=== PATIENT | female | born 1935 | race Hispanic/Latino ===

== ENCOUNTER 2017-04-01 10:54 | Emergency (ER) | payer MEDICARE, MEDICAID ==
[~2017-04-01] VITALS: Ht 165.1 cm; Wt 70.0 kg
[~2017-04-01 10:54] MED LIST: ASPIRIN81 MG OR; DARVOCET-N 100100 MG OR; LIPITOR20 MG PO; LISINOP/HCTZ1 TA2 PO; OMEPRAZOLE20 MG OR; ONE DAIL1 PO; PLAVIX75 MG PO
[2017-04-01] MEDS ORDERED: METFORMIN1000 MG PO (11:58)
[2017-04-01] MEDS ORDERED: SERTRALINE25 MG PO (12:00)
[2017-04-01 12:45] VITALS: BP 140/60
[2017-04-01] MEDS ORDERED: NORCO1 TA1 PO (12:45)
== END 2017-04-01 12:45 | disposition home or self-care (01) ==
LOC: ED 10:54
DX: M25.552 Pain in left hip (principal)

== ENCOUNTER 2018-12-23 13:04 | Emergency (ER) | payer MEDICARE ==
[~2018-12-23] VITALS: Ht 165.1 cm; Wt 75.0 kg
[~2018-12-23 13:04] MED LIST changes: +METFORMIN1000 MG PO; +NORCO1 TA1 PO; +SERTRALINE25 MG PO
[2018-12-23 13:41] LABS: HEMATOCRIT 32.7 % (37.0-47.0); HEMOGLOBIN 10.7 g/dl (12.0-16.0); IMMATURE GRANULOCYTES 0.5 % (0.0-5.0); MEAN CELL VOLUME 92.9 fL CALC (80.0-100.0); MEAN CORPUSCULAR HGB 30.4 pG CALC (26.0-32.0); MEAN CORPUSCULAR HGB CONC 32.7 g/L CALC (32.0-36.0); NEUT# 3.9 thou/uL (2.00-7.15); RED BLOOD COUNT 3.52 mill/uL (4.20-5.60); RED CELL DISTRI WIDTH 13.6 % (11.5-15.5)
[2018-12-23 13:57] LABS: ALBUMIN 4.4 g/dL (3.2-5.0); ALKALINE PHOSPHATASE 84 u/l (38-126); AMYLASE 91 u/l (30-110); ANION GAP 14 (6-22 (CALC)); BILIRUBIN, TOTAL 0.7 mg/dL (0.0-1.4); BUN 19 mg/dL (8-23); BUN/CREATININE RATIO 25 (12-20 (CALC)); CARBON DIOXIDE 27 mmol/l (22-30); CHLORIDE 105 mmol/l (95-108); CPK 95 u/l (30-165); CREATININE 0.8 mg/dL (0.5-1.0); ETHYL ALCOHOL 0 mg/dl (0-30); GFR > 60 ML/MIN (>=60 (CALC)); GFR FOR AFR.AMER. > 60 ML/MIN (>=60 (CALC)); LIPASE 75 u/l (23-300); MAGNESIUM 1.8 mg/dL (1.6-2.3); POTASSIUM 5.2 mmol/l (3.5-5.1); SGOT/AST 26 u/l (9-36); SODIUM 141 mmol/l (137-146); TOTAL PROTEIN 7.5 g/dL (6.3-8.2)
[2018-12-23 14:02] LABS: ACT PARTIAL THROMBO TIME 25.6 SECONDS (20.0-32.5); INTERNATIONAL NORMALIZED RATIO 0.9 RATIO (0.7-1.3); PROTHROMBIN TIME 9.8 SECONDS (9.0-12.5)
[2018-12-23 14:23] LABS: TSH, 3RD GENERATION 1.53 uIU/mL (0.47 - 4.68)
[2018-12-23] MEDS ORDERED: PERCOCET 5/321 COMBO PO (14:32)
[2018-12-23 14:56] LABS: URINE BILIRUBIN - DIPSTICK NEGATIVE (NEGATIVE); URINE BLOOD DIPSTICK NEGATIVE (NEGATIVE); URINE COLOR YELLOW; URINE GLUCOSE - DIPSTICK NEGATIVE (NEGATIVE); URINE KETONE NEGATIVE (NEGATIVE); URINE LEUK ESTERASE TRACE (NEGATIVE); URINE NITRITE - DIPSTICK NEGATIVE (Negative); URINE PH 5.5 (4.5-8.0); URINE PROTEIN - DIPSTICK NEGATIVE (NEG-TRACE); URINE SPECIFIC GRAVITY 1.015; URINE UROBILINOGEN - DIPSTICK 0.2 E.U./dL (0.2)
[2018-12-23] MEDS ORDERED: NAPROSYN250 MG PO (14:56)
[2018-12-23] MEDS ORDERED: TOPROL XL50 MG PO (14:57)
[2018-12-23] MEDS ORDERED: GABAPENTIN100 MG PO (14:57)
[2018-12-23] MEDS ORDERED: CARBAMAZEPIN200 MG PO (14:58)
[2018-12-23] MEDS ORDERED: LISINOPRIL20 MG PO (14:59)
[2018-12-23 15:02] LABS: BARBITURATES NEGATIVE (NEGATIVE); COCAINE NEGATIVE (NEGATIVE); METHADONE NEGATIVE (NEGATIVE); OXCYCODONE POSITIVE (NEGATIVE); TETRAHYDROCANNABIONOL NEGATIVE (NEGATIVE); TRICYLIC ANTIDEPRESSANTS NEGATIVE (NEGATIVE)
[2018-12-23 15:20] VITALS: BP 159/85
== END 2018-12-23 15:20 | disposition short-term general hospital (02) ==
LOC: ED 13:04
DX: G40.909 Epilepsy, unspecified, not intractable, without status epilepticus (principal); E11.9 Type 2 diabetes mellitus without complications; I69.398 Other sequelae of cerebral infarction; Z79.84 Long term (current) use of oral hypoglycemic drugs
CPT/HCPCS: J1953

== ENCOUNTER 2020-01-21 08:39 | Emergency (ER) | payer MEDICARE, MEDICAID ==
[~2020-01-21] VITALS: Ht 165.1 cm; Wt 75.0 kg
[~2020-01-21 08:39] MED LIST changes: +CARBAMAZEPIN200 MG PO; +GABAPENTIN100 MG PO; +LISINOPRIL20 MG PO; +METFORMIN HYD1000 MG PO; -METFORMIN1000 MG PO; +NAPROSYN250 MG PO; +PERCOCET 5/321 COMBO PO; +TOPROL XL50 MG PO
[2020-01-21 09:23] LABS: HEMATOCRIT 38.2 % (37.0-47.0); HEMOGLOBIN 12.1 g/dl (12.0-16.0); IMMATURE GRANULOCYTES 0.3 % (0.0-5.0); MEAN CELL VOLUME 93.9 fL CALC (80.0-100.0); MEAN CORPUSCULAR HGB 29.7 pG CALC (26.0-32.0); MEAN CORPUSCULAR HGB CONC 31.7 g/dL CAL (32.0-36.0); NEUT# 4.25 thou/uL (2.00-7.15); RED BLOOD COUNT 4.07 mill/uL (4.20-5.60)
[2020-01-21 09:37] LABS: ALBUMIN 4.3 g/dL (3.2-5.0); ALKALINE PHOSPHATASE 88 u/l (38-126); ANION GAP 12 (6-22 (CALC)); BILIRUBIN, TOTAL 0.4 mg/dL (0.0-1.4); BUN 20 mg/dL (8-23); BUN/CREATININE RATIO 23 (12-20 (CALC)); CARBON DIOXIDE 25 mmol/l (22-30); CHLORIDE 104 mmol/l (95-108); CREATININE 0.9 mg/dL (0.5-1.0); GFR 60 ML/MIN (>=60 (CALC)); GFR FOR AFR.AMER. > 60 ML/MIN (>=60 (CALC)); LIPASE 112 u/l (23-300); POTASSIUM 4.5 mmol/l (3.5-5.1); SGOT/AST 18 u/l (9-36); SODIUM 137 mmol/l (137-146); TOTAL PROTEIN 6.9 g/dL (6.3-8.2)
[2020-01-21 10:46] LABS: URINE BILIRUBIN - DIPSTICK NEGATIVE (NEGATIVE); URINE BLOOD DIPSTICK NEGATIVE (NEGATIVE); URINE COLOR YELLOW; URINE GLUCOSE - DIPSTICK NEGATIVE (NEGATIVE); URINE KETONE NEGATIVE (NEGATIVE); URINE LEUK ESTERASE TRACE (NEGATIVE); URINE NITRITE - DIPSTICK NEGATIVE (Negative); URINE PROTEIN - DIPSTICK NEGATIVE (NEG-TRACE); URINE SPECIFIC GRAVITY 1.025; URINE UROBILINOGEN - DIPSTICK 0.2 E.U./dL (0.2)
[2020-01-21 12:13] VITALS: BP 157/79
== END 2020-01-21 12:39 | disposition home or self-care (01) ==
LOC: ED 08:39
PROVIDERS: Family Medicine
DX: N83.292 Other ovarian cyst, left side (principal); E11.9 Type 2 diabetes mellitus without complications; I10 Essential (primary) hypertension; G40.909 Epilepsy, unspecified, not intractable, without status epilepticus; Z86.73 Personal history of transient ischemic attack (TIA), and cerebral infarction without residual deficits; Z95.0 Presence of cardiac pacemaker; Z79.84 Long term (current) use of oral hypoglycemic drugs

== ENCOUNTER 2020-01-21 13:40 | Observation (INO) | payer MEDICARE ==
[~2020-01-21] VITALS: Ht 165.1 cm; Wt 95.4 kg
--- NOTE | 2020-01-21 13:40 | NUR ---
PT TO ROOM VIA EMS
--- NOTE | 2020-01-21 13:50 | NUR ---
PT ARRIVED VIA EMS FOR 2 SEIZURES PRIOR TO ARRIVAL. PT WAS JUST DISCHARGED FROM ER AND STATED THAT SHE WENT TO GET FOOD THEN HEADED HOME. PT SAID THAT WHEN SHE ARRIVED AT HOME SHE HAD A SEIZURE. PT DENIES N/V/D AT THIS TIME. PT IS AO X3. AWAITING ORDERS FROM EDP.
[2020-01-21 14:21] LABS: HEMATOCRIT 37.7 % (37.0-47.0); HEMOGLOBIN 12.1 g/dl (12.0-16.0); IMMATURE GRANULOCYTES 0.3 % (0.0-5.0); MEAN CELL VOLUME 93.1 fL CALC (80.0-100.0); MEAN CORPUSCULAR HGB 29.9 pG CALC (26.0-32.0); MEAN CORPUSCULAR HGB CONC 32.1 g/dL CAL (32.0-36.0); NEUT# 4.05 thou/uL (2.00-7.15); RED BLOOD COUNT 4.05 mill/uL (4.20-5.60); RED CELL DISTRI WIDTH 12.9 % (11.5-15.5)
[2020-01-21 14:42] LABS: ALBUMIN 4.4 g/dL (3.2-5.0); ALKALINE PHOSPHATASE 91 u/l (38-126); ANION GAP 13 (6-22 (CALC)); BILIRUBIN, TOTAL 0.4 mg/dL (0.0-1.4); BUN 19 mg/dL (8-23); BUN/CREATININE RATIO 25 (12-20 (CALC)); CARBON DIOXIDE 25 mmol/l (22-30); CHLORIDE 103 mmol/l (95-108); CREATININE 0.8 mg/dL (0.5-1.0); GFR > 60 ML/MIN (>=60 (CALC)); GFR FOR AFR.AMER. > 60 ML/MIN (>=60 (CALC)); SGOT/AST 20 u/l (9-36); SODIUM 137 mmol/l (137-146); TOTAL PROTEIN 7.3 g/dL (6.3-8.2)
--- NOTE | 2020-01-21 14:50 | NUR ---
PT RESTING IN BED WITH KEPPRA INFUSING. IV SITE APPEARS HEALTHY AND INTACT. AWAITING KEPPRA COMPLETION FOR PT TO GO DOWN FOR CT SCAN. VSS ARE WNL. DAUGHTER AT BEDSIDE. WILL CONTINUE TO MONITOR.
--- NOTE | 2020-01-21 15:50 | NUR ---
PT STATING THAT SHE HUNGRY, GIVEN APPLE SAUCE.
--- NOTE | 2020-01-21 16:45 | NUR ---
RECIEVED REPORT FROM STORMY BANG. PT ARRIVED TO [facility] ROOM 271 VIA STRETCHER IN STABLE CONDITION ACCOMPAINED BY ER STAFF AND DAUGHTER. INTRODUCED SELF TO PT AND DISCUSSED POC. PT IS A/O TO SELF. PT APPEARS TO BE DROWSY DUE TO BEING MEDICATION IN ER. ASSESSMENT AND VITALS COMPLETED AT THIS TIME. BP 136/62, HR 57, O2 99% ON ROOM AIR. RESPIRATIONS ARE EVEN AND UNLABORED WITH NO SIGNS OF DISTRESS NOTED. LUNG SOUNDS ARE CLEAR . HEART RHYTHM IS NORMAL WITH TELE IN PLACE. BOWEL SOUNDS ARE ACTIVE IN ALL QUADRANTS, LAST REPORTED BM 01/20/2020. RADIAL AND PEDAL PULSES ARE STRONG WITH NORMAL CAPILLARY REFILL. #18H IN LAC FLUSHED, SITE APPEARS HEALTHY AND PATENT. DAUGHTER AT BEDSIDE AND DAUGHTER CONTACTED VIA PHONE CALL GOOD HISTORIAN. WRITTER INFORMED THAT PT PRESENTED TO ER FOR SEIZURE. SEIZURE PRECAUTIONS IN PLACE. DAUGHTER NOTIFIED WRITTER OF CODIENE ALLERGY, ALLERGY BAND AND FALL RISK BAND APPLIED WRITTER WAS INFORMED THAT PT HAD AN APPOINTMENT WITH A NEUROLOGIST SCHEDULED FOR TOMORROW DUE FAMILY MEMBERS NOTICING REPEATING OF STORIES AND MENTAL STATUS CHANGING. DAUGHTER ASKED TO SPEND THE NIGHT DUE TO PT BEING CONFUSED WHEN AWAKING. STRAW HAT WASHER OPERATOR NOTIFIED. REQUEST DENIED. BED ALARM ACTIVATED. ALL SAFTY PRECAUTIONS ARE IN PLACE WITH CALL LIGHT IN REACH AND DAUGHTER AT BEDSIDE. WILL CONTINUE TO MONITOR
--- NOTE | 2020-01-21 16:50 | NUR ---
PT AWAITING ON STRETCHER, AWAITING ADMISSION
--- NOTE | 2020-01-21 17:21 | NUR ---
REPORT CALLED TO [facility]- REPORT GIVEN TO EDUIN MCGEE
--- NOTE | 2020-01-21 17:36 | NUR ---
PT TRANSPORTED TO 271 VIA STRETCHER ACCOMPANIED BY DAUGHTER. CARE RELINQUISHED TO MICHELLE MCGEE.
[2020-01-21 19:02] VITALS: BP 111/65
--- NOTE | 2020-01-21 20:15 | NUR ---
PT SLEEPING, NO S/O DISTRESS NOTED. CALL LIGHT AT SIDE AND BED IN LOWEST POSITION, BED ALARM ON AND SEIZURE PRECAUTIONS PLACED.
--- NOTE | 2020-01-21 22:03 | NUR ---
PT MEDICATED ORDERS PROVIDE. NO S/O DISTRESS NOTED. CALL LIGHT W/IN REACH, BED ALARM ON.
[2020-01-21 23:40] VITALS: BP 118/59
--- NOTE | 2020-01-22 02:05 | NUR ---
PT SLEEPING, NO S/O DISTRESS NOTED.
[2020-01-22 03:44] VITALS: BP 101/55
--- NOTE | 2020-01-22 03:59 | NUR ---
ASSISTED PT TO BSC AND BACK TO BED. PT SET OFF BED ALARM, DID NOT CALL. NO S/O DISTRESS, BUT PT UNSTEADY ON FEET. PT REPORTS KNOWING SHE IS IN THE HOSPITAL, BUT APPEARS SOMEWHAT CONFUSED ABOUT CIRCUMSTANCES AT THIS TIME. LEFT WITH BED ALARM ON, BED IN LOWEST POSITION AND CALL LIGHT W/IN REACH.
[2020-01-22 06:05] LABS: HEMATOCRIT 38.2 % (37.0-47.0); IMMATURE GRANULOCYTES 0.4 % (0.0-5.0); MEAN CELL VOLUME 94.6 fL CALC (80.0-100.0); MEAN CORPUSCULAR HGB 29.7 pG CALC (26.0-32.0); MEAN CORPUSCULAR HGB CONC 31.4 g/dL CAL (32.0-36.0); NEUT# 3.38 thou/uL (2.00-7.15); RED BLOOD COUNT 4.04 mill/uL (4.20-5.60); RED CELL DISTRI WIDTH 12.8 % (11.5-15.5)
[2020-01-22 06:37] LABS: ALKALINE PHOSPHATASE 81 u/l (38-126); ANION GAP 11 (6-22 (CALC)); BILIRUBIN, TOTAL 0.5 mg/dL (0.0-1.4); BUN 18 mg/dL (8-23); BUN/CREATININE RATIO 25 (12-20 (CALC)); CALCULATED LDLCHOLESTEROL 106 mg/dL (62-129 (CALC)); CARBON DIOXIDE 27 mmol/l (22-30); CHLORIDE 105 mmol/l (95-108); CHOLESTEROL HDL RATIO 4.9 (<4.4 (CALC)); CREATININE 0.7 mg/dL (0.5-1.0); GFR > 60 ML/MIN (>=60 (CALC)); GFR FOR AFR.AMER. > 60 ML/MIN (>=60 (CALC)); HDL CHOLESTEROL 40 mg/dL (>=40); MAGNESIUM 1.9 mg/dL (1.6-2.3); POTASSIUM 4.2 mmol/l (3.5-5.1); SGOT/AST 21 u/l (9-36); SODIUM 139 mmol/l (137-146); TOTAL CHOLESTEROL 196 mg/dl (0-199); TOTAL PROTEIN 6.5 g/dL (6.3-8.2); TOTAL TRIGLYCERIDES 250 mg/dl (30-149); VLDL CHOLESTROL 50 mg/dl (0-48 (CALC))
--- NOTE | 2020-01-22 07:43 | NUR ---
PT note Patient is screened for PT intervevntion. She may benefit from consult and functional assessment if medical agrees
--- NOTE | 2020-01-22 08:10 | NUR ---
RECIEVED REPORT FROM STORMY GILMAN. PT RESTING IN SEMI FOLWERS POSITION UPON ENTERING ROOM WITH DAUGHTER AT BEDSIDE. INTRODUCED SELF TO PT AND DISCUSSED POC. PT IS A/O X2. ASSESSMENT AND VITALS COMPLETED AT THSI TIME. BP 130/57, HR 77, O2 95% ON ROOM AIR. RESPIRATIONS ARE EVEN AND UNLABORED WITH NO SIGNS OF DISTRESS NOTED. LUNG SOUNDS ARE CLEAR. HEART RHYTHM IS NORMAL WITH TELE IN PLACE. RADIAL AND PEDAL PULSES ARE STRONG WITH NORMAL CAPILLARY REFILL. #18G EMS FLUSHED,SITE APPEARS HEALTHY AND PATENT.HISTORY OF SIEZURES NOTED, SIEZURE PRECAUTIONS IN PLACE. PT DENEIS ANY PAIN OR DISCOMFORTS AT THIS TIME. ALL SAFETY PRECAUTIONS ARE IN PLACE WITH CALL LIGHT IN REACH AND BED ALARM ACTIVATED. WILL CONTINUE TO MONITOR
[2020-01-22 08:22] VITALS: BP 130/57
--- NOTE | 2020-01-22 08:42 | NUR ---
NITHIN SMITH AT BEDSIDE DISCUSSING POC WITH PT
[2020-01-22 11:00] VITALS: BP 115/59
--- NOTE | 2020-01-22 11:35 | NUR ---
WRITTER CALLED TO ROOM OF PT STATING IV WAS BLEEDING. BLOOD PRESENT. IV REMOVED WITH CATHATER INTACT DUE TO DISCHARGE ORDERS IN PLACE. PT TOLERATED WELL.
--- NOTE | 2020-01-22 11:46 | NUR ---
DAUGHTER ASSITED PT TO BATHROOM. DAUGHTER INFORMED WRITTER THAT PT WAS FEELING DIZZY. VITALS OBATINED 128/62, HR 65, O2 99% ON ROOM AIR. RESPIRATIONS ARE EVEN AND UNLABORED WITH NO DISTRESS NOTED. PT ASSISTED BACK INTO BED. BED ALARM ACTIVATED. ALL SAFTEY PRECAUTIONS ARE IN PLACE WITH CALL LIGHT IN REACH
[2020-01-22 11:48] VITALS: BP 128/62
--- NOTE | 2020-01-22 12:41 | NUR ---
PT SLEEPING IN LOW FOWLERS POSITION WITH DAUGHTER AT BEDSIDE. RESPIRATIONS ARE EVEN AND UNLABORED WITH NO SIGNS OF DISTRESS NOTED. PT DENIES ANY PAIN. DISCHARGE ORDERS IN. AWAITING FOR PHYSCIAL THERAPY CONSULTATION BEFORE DSICHARGE. ALL SAFETY PRECAUTIONS ARE IN PLACE WITH CALL LIGHT IN REACH. WILL CONTINUE TO MONITOR.
--- NOTE | 2020-01-22 13:27 | NUR ---
PT AT BEDSIDE WORKING WITH PT AT THIS TIME.
--- NOTE | 2020-01-22 14:12 | NUR ---
PT AD DAUGHTER EDUCTAED ON DISCHARGE INSTRUCTIONS. PT VERBAILZED UNDERSTANDING. TELE MONITORING REMOVED. ER NOTIFIED. DAUGHTER ASSISTING PT WITH GETTING DRESSED. [facility] PRE[facility]IONS ARE IN PLACE WITH CALL LUKECARLTONGarima IN REACH. WILL CONTINUE TO MONITOR
--- NOTE | 2020-01-22 14:31 | NUR ---
Discharge instructions given. Patient verbalizes understanding of same. Discharged in stable condition via Wheelchair to Home with family. All belongings sent with pt. PT DISCHARGE HOME WITH [facility]. PT DISCHARGED VIA WHEELCHAIR ACCOMPAINED BY WRITTER AND DAUGHTER WITH ALL BELONGINGS AND DISCHARGE PAPERWORK.
== END 2020-01-22 14:31 ==
LOC: ED 13:40 → ED-I 15:50 → ED 16:09 → MS2 16:10
PROVIDERS: Family Medicine; Nurse Practitioner; ADMIT Internal Medicine; ATTEND Internal Medicine
DX: G40.909 Epilepsy, unspecified, not intractable, without status epilepticus (principal); R07.9 Chest pain, unspecified; T42.1X6A Underdosing of iminostilbenes, initial encounter; S09.90XA Unspecified injury of head, initial encounter; I10 Essential (primary) hypertension; E11.9 Type 2 diabetes mellitus without complications; I48.91 Unspecified atrial fibrillation; W19.XXXA Unspecified fall, initial encounter; Z79.02 Long term (current) use of antithrombotics/antiplatelets; Z91.128 Patient's intentional underdosing of medication regimen for other reason; Z86.73 Personal history of transient ischemic attack (TIA), and cerebral infarction without residual deficits; Z95.0 Presence of cardiac pacemaker; Z20.828 Contact with and (suspected) exposure to other viral communicable diseases; R10.12 Left upper quadrant pain; N83.292 Other ovarian cyst, left side; Z79.84 Long term (current) use of oral hypoglycemic drugs
CPT/HCPCS: J1650; J1953; J2060

== ENCOUNTER 2020-05-20 18:35 | Emergency (ER) | payer MEDICARE ==
[~2020-05-20] VITALS: Ht 165.1 cm; Wt 65.0 kg
[2020-05-20] MEDS ORDERED: DONEPEZIL HCL10 M1 PO (19:12)
[2020-05-20 19:52] LABS: HEMATOCRIT 35.3 % (37.0-47.0); HEMOGLOBIN 11.1 g/dl (12.0-16.0); IMMATURE GRANULOCYTES 0.3 % (0.0-5.0); MEAN CELL VOLUME 93.6 fL CALC (80.0-100.0); MEAN CORPUSCULAR HGB 29.4 pG CALC (26.0-32.0); MEAN CORPUSCULAR HGB CONC 31.4 g/dL CAL (32.0-36.0); NEUT# 4.16 thou/uL (2.00-7.15); RED BLOOD COUNT 3.77 mill/uL (4.20-5.60); RED CELL DISTRI WIDTH 12.9 % (11.5-15.5)
[2020-05-20 20:13] LABS: ALBUMIN 4.3 g/dL (3.2-5.0); ALKALINE PHOSPHATASE 82 u/l (38-126); ANION GAP 12 (6-22 (CALC)); BUN 18 mg/dL (8-23); BUN/CREATININE RATIO 24 (12-20 (CALC)); CARBON DIOXIDE 26 mmol/l (22-30); CHLORIDE 102 mmol/l (95-108); CREATININE 0.7 mg/dL (0.5-1.0); GFR > 60 ML/MIN (>=60 (CALC)); GFR FOR AFR.AMER. > 60 ML/MIN (>=60 (CALC)); POTASSIUM 4.4 mmol/l (3.5-5.1); SGOT/AST 19 u/l (9-36); SODIUM 136 mmol/l (137-146); TOTAL PROTEIN 6.8 g/dL (6.3-8.2)
[2020-05-20 20:15] LABS: BILIRUBIN, TOTAL 0.2 mg/dL (0.0-1.4)
[2020-05-20 20:32] LABS: URINE BILIRUBIN - DIPSTICK NEGATIVE (NEGATIVE); URINE BLOOD DIPSTICK NEGATIVE (NEGATIVE); URINE COLOR YELLOW; URINE GLUCOSE - DIPSTICK NEGATIVE (NEGATIVE); URINE KETONE NEGATIVE (NEGATIVE); URINE LEUK ESTERASE NEGATIVE (NEGATIVE); URINE NITRITE - DIPSTICK NEGATIVE (Negative); URINE PH 5.5 (4.5-8.0); URINE PROTEIN - DIPSTICK NEGATIVE (NEG-TRACE); URINE UROBILINOGEN - DIPSTICK 0.2 E.U./dL (0.2)
[2020-05-20 21:00] VITALS: BP 156/88
== END 2020-05-20 21:00 | disposition home or self-care (01) ==
LOC: ED 18:35 → ED-I 19:55 → ED 21:00
PROVIDERS: Family Medicine
DX: R55 Syncope and collapse (principal); I10 Essential (primary) hypertension; E11.9 Type 2 diabetes mellitus without complications; I48.91 Unspecified atrial fibrillation; G40.909 Epilepsy, unspecified, not intractable, without status epilepticus; Z63.4 Disappearance and death of family member; Z95.0 Presence of cardiac pacemaker; Z79.84 Long term (current) use of oral hypoglycemic drugs; Z86.73 Personal history of transient ischemic attack (TIA), and cerebral infarction without residual deficits; Z20.822 Contact with and (suspected) exposure to COVID-19

== ENCOUNTER 2020-06-26 19:55 | Emergency (ER) | payer MEDICARE ==
[~2020-06-26] VITALS: Ht 165.1 cm; Wt 63.0 kg
[~2020-06-26 19:55] MED LIST changes: +DONEPEZIL HCL10 M1 PO
[2020-06-26 20:47] LABS: HEMATOCRIT 34.4 % (37.0-47.0); HEMOGLOBIN 10.8 g/dl (12.0-16.0); IMMATURE GRANULOCYTES 0.2 % (0.0-5.0); MEAN CELL VOLUME 93.5 fL CALC (80.0-100.0); MEAN CORPUSCULAR HGB 29.3 pG CALC (26.0-32.0); MEAN CORPUSCULAR HGB CONC 31.4 g/dL CAL (32.0-36.0); NEUT# 2.46 thou/uL (2.00-7.15); RED BLOOD COUNT 3.68 mill/uL (4.20-5.60); RED CELL DISTRI WIDTH 12.9 % (11.5-15.5)
[2020-06-26 21:04] LABS: ALKALINE PHOSPHATASE 79 u/l (38-126); ANION GAP 10 (6-22 (CALC)); BUN 24 mg/dL (8-23); BUN/CREATININE RATIO 33 (12-20 (CALC)); CARBON DIOXIDE 29 mmol/l (22-30); CHLORIDE 102 mmol/l (95-108); CREATININE 0.7 mg/dL (0.5-1.0); ETHYL ALCOHOL 0 mg/dl (0-30); GFR > 60 ML/MIN (>=60 (CALC)); GFR FOR AFR.AMER. > 60 ML/MIN (>=60 (CALC)); POTASSIUM 4.1 mmol/l (3.5-5.1); SGOT/AST 30 u/l (9-36); SODIUM 136 mmol/l (137-146); TOTAL PROTEIN 6.9 g/dL (6.3-8.2)
[2020-06-26 21:06] LABS: BILIRUBIN, TOTAL 0.5 mg/dL (0.0-1.4)
[2020-06-26 21:10] LABS: PROTHROMBIN TIME 9.7 SECONDS (9.0-12.5)
[2020-06-26 21:13] LABS: MYOGLOBIN 33 ng/mL (0 - 62)
[2020-06-26 23:42] LABS: URINE BILIRUBIN - DIPSTICK NEGATIVE (NEGATIVE); URINE COLOR YELLOW; URINE GLUCOSE - DIPSTICK NEGATIVE (NEGATIVE); URINE KETONE NEGATIVE (NEGATIVE); URINE PH 5.5 (4.5-8.0); URINE PROTEIN - DIPSTICK TRACE mg/dL (NEG-TRACE); URINE SPECIFIC GRAVITY 1.025; URINE UROBILINOGEN - DIPSTICK 0.2 E.U./dL (0.2)
[2020-06-26 23:50] LABS: URINE LEUK ESTERASE MODERATE (NEGATIVE); URINE NITRITE - DIPSTICK NEGATIVE (Negative)
[2020-06-26 23:53] LABS: URINE BLOOD DIPSTICK NEGATIVE (NEGATIVE)
[2020-06-26 23:55] LABS: URINE BACTERIA MANY hpf; URINE EPITHELIAL CELLS MODERATE EPI/hpf (0-FEW)
[2020-06-27] MEDS ORDERED: CIPROFLOXACN500 MG PO (00:09)
[2020-06-27 00:33] VITALS: BP 171/79
== END 2020-06-27 00:40 | disposition home or self-care (01) ==
LOC: ED 19:55
PROVIDERS: Emergency Medicine
DX: U07.1 COVID-19 (principal); N39.0 Urinary tract infection, site not specified; E11.9 Type 2 diabetes mellitus without complications; I10 Essential (primary) hypertension; G40.909 Epilepsy, unspecified, not intractable, without status epilepticus; I48.91 Unspecified atrial fibrillation; Z86.73 Personal history of transient ischemic attack (TIA), and cerebral infarction without residual deficits; Z95.0 Presence of cardiac pacemaker; Z79.84 Long term (current) use of oral hypoglycemic drugs

== ENCOUNTER 2021-02-06 12:30 | Emergency (ER) | payer MEDICARE ==
[~2021-02-06] VITALS: Ht 165.1 cm; Wt 86.0 kg
[~2021-02-06 12:30] MED LIST changes: +CIPROFLOXACN500 MG PO
[2021-02-06 13:09] LABS: HEMATOCRIT 33.2 % (37.0-47.0); IMMATURE GRANULOCYTES 0.4 % (0.0-5.0); MEAN CELL VOLUME 94.9 fL CALC (80.0-100.0); MEAN CORPUSCULAR HGB 31.4 pG CALC (26.0-32.0); MEAN CORPUSCULAR HGB CONC 33.1 g/dL CAL (32.0-36.0); NEUT# 4.07 thou/uL (2.00-7.15); RED BLOOD COUNT 3.5 mill/uL (4.20-5.60); RED CELL DISTRI WIDTH 12.9 % (11.5-15.5)
[2021-02-06 13:34] LABS: ALBUMIN 4.3 g/dL (3.2-5.0); ALKALINE PHOSPHATASE 93 u/l (38-126); ANION GAP 15 (6-22 (CALC)); BILIRUBIN, TOTAL 0.4 mg/dL (0.0-1.4); BUN 20 mg/dL (8-23); BUN/CREATININE RATIO 26 (12-20 (CALC)); CARBON DIOXIDE 24 mmol/l (22-30); CHLORIDE 104 mmol/l (95-108); CREATININE 0.8 mg/dL (0.5-1.0); GFR > 60 ML/MIN (>=60 (CALC)); GFR FOR AFR.AMER. > 60 ML/MIN (>=60 (CALC)); POTASSIUM 4.5 mmol/l (3.5-5.1); SGOT/AST 27 u/l (9-36); SODIUM 138 mmol/l (137-146); TOTAL PROTEIN 7.1 g/dL (6.3-8.2)
--- NOTE | 2021-02-06 13:49 | NUR ---
PT INTUBED MY ER MD X1 ATTEMPT, NONTRAUMATIC. BBS=. ETCO2 + COLOR CHANGE. CXR TO BE OBTAINED. WILBUR WELL AT THIS TIME. STEAM POWERPLANT SUPERVISOR TO MONITOR.
--- NOTE | 2021-02-06 14:22 | NUR ---
weaned fio2 as per pt abg results. aware. pt aby well at this time. nad. vss. instrumentation designer to monitor.
[2021-02-06 15:03] VITALS: BP 179/84
--- NOTE | 2021-02-06 15:18 | NUR ---
AEROMED HERE TO TRANSPORT PATIENT TO [facility]. RT CALLED TO BEDSIDE TO ASSIST. VENTILATOR SETTINGS CONFIRMED. PT TOLERATED MOVE TO STRETCHER WITHOUT ANY INCIDENCE.
== END 2021-02-06 15:03 | disposition short-term general hospital (02) ==
LOC: ED 12:30
PROVIDERS: Family Medicine
PROC: 0BH17EZ Insertion of Endotracheal Airway into Trachea, Via Natural or Artificial Opening (ICD-10-PCS; principal; 2021-02-06)
PROC: 05HM33Z Insertion of Infusion Device into Right Internal Jugular Vein, Percutaneous Approach (ICD-10-PCS; 2021-02-06)
DX: G40.901 Epilepsy, unspecified, not intractable, with status epilepticus (principal); I10 Essential (primary) hypertension; E11.9 Type 2 diabetes mellitus without complications; I48.91 Unspecified atrial fibrillation; F03.90 Unspecified dementia, unspecified severity, without behavioral disturbance, psychotic disturbance, mood disturbance, and anxiety; Z86.73 Personal history of transient ischemic attack (TIA), and cerebral infarction without residual deficits; Z95.5 Presence of coronary angioplasty implant and graft; Z95.0 Presence of cardiac pacemaker; Z79.84 Long term (current) use of oral hypoglycemic drugs
CPT/HCPCS: J1953; J2060

== ENCOUNTER 2021-05-19 11:23 | Emergency (ER) | payer MEDICARE, MEDICAID ==
[~2021-05-19] VITALS: Ht 152.4 cm; Wt 69.0 kg
[2021-05-19] MEDS ORDERED: SERTRALINE50 MG PO (11:53)
[2021-05-19] MEDS ORDERED: GABAPENTIN100 MG PO (11:53)
[2021-05-19] MEDS ORDERED: CELEBREX200 M1 (11:54)
[2021-05-19 11:56] LABS: HEMATOCRIT 35.1 % (37.0-47.0); IMMATURE GRANULOCYTES 0.2 % (0.0-5.0); MEAN CORPUSCULAR HGB 30.4 pG CALC (26.0-32.0); MEAN CORPUSCULAR HGB CONC 31.3 g/dL CAL (32.0-36.0); NEUT# 3.75 thou/uL (2.00-7.15); RED BLOOD COUNT 3.62 mill/uL (4.20-5.60)
[2021-05-19 12:30] LABS: ALBUMIN 4.2 g/dL (3.2-5.0); ALKALINE PHOSPHATASE 92 u/l (38-126); ANION GAP 17 (6-22 (CALC)); BILIRUBIN, TOTAL 0.3 mg/dL (0.0-1.4); BUN 26 mg/dL (8-23); BUN/CREATININE RATIO 30 (12-20 (CALC)); CARBON DIOXIDE 20 mmol/l (22-30); CHLORIDE 108 mmol/l (95-108); CREATININE 0.9 mg/dL (0.5-1.0); GFR 60 ML/MIN (>=60 (CALC)); GFR FOR AFR.AMER. > 60 ML/MIN (>=60 (CALC)); POTASSIUM 4.2 mmol/l (3.5-5.1); SGOT/AST 22 u/l (9-36); SODIUM 141 mmol/l (137-146); TOTAL PROTEIN 7.2 g/dL (6.3-8.2)
[2021-05-19 13:11] LABS: URINE BILIRUBIN - DIPSTICK NEGATIVE (NEGATIVE); URINE BLOOD DIPSTICK NEGATIVE (NEGATIVE); URINE COLOR YELLOW; URINE GLUCOSE - DIPSTICK NEGATIVE (NEGATIVE); URINE KETONE NEGATIVE (NEGATIVE); URINE LEUK ESTERASE TRACE (NEGATIVE); URINE PROTEIN - DIPSTICK NEGATIVE (NEG-TRACE); URINE UROBILINOGEN - DIPSTICK 0.2 E.U./dL (0.2)
[2021-05-19 13:18] LABS: URINE NITRITE - DIPSTICK NEGATIVE (Negative)
[2021-05-19 13:46] VITALS: BP 156/67
== END 2021-05-19 13:40 | disposition home or self-care (01) ==
LOC: ED 11:23
PROVIDERS: Family Medicine
DX: R06.02 Shortness of breath (principal); M25.561 Pain in right knee; I11.0 Hypertensive heart disease with heart failure; I50.9 Heart failure, unspecified; I48.91 Unspecified atrial fibrillation; E11.9 Type 2 diabetes mellitus without complications; G40.909 Epilepsy, unspecified, not intractable, without status epilepticus; Z86.73 Personal history of transient ischemic attack (TIA), and cerebral infarction without residual deficits; Z95.0 Presence of cardiac pacemaker; Z79.84 Long term (current) use of oral hypoglycemic drugs

== ENCOUNTER 2021-08-18 11:22 | Observation (INO) | payer MEDICARE ==
[~2021-08-18] VITALS: Ht 165.1 cm; Wt 73.0 kg
[~2021-08-18 11:22] MED LIST changes: +CELEBREX200 M1 PO; +SERTRALINE50 MG PO
[2021-08-18 11:48] LABS: HEMATOCRIT 35.2 % (37.0-47.0); HEMOGLOBIN 11.2 g/dl (12.0-16.0); IMMATURE GRANULOCYTES 0.4 % (0.0-5.0); MEAN CELL VOLUME 95.9 fL CALC (80.0-100.0); MEAN CORPUSCULAR HGB 30.5 pG CALC (26.0-32.0); MEAN CORPUSCULAR HGB CONC 31.8 g/dL CAL (32.0-36.0); NEUT# 6.07 thou/uL (2.00-7.15); RED BLOOD COUNT 3.67 mill/uL (4.20-5.60)
[2021-08-18 12:05] LABS: ALBUMIN 4.4 g/dL (3.2-5.0); ALKALINE PHOSPHATASE 101 u/l (38-126); ANION GAP 15 (6-22 (CALC)); BILIRUBIN, TOTAL 0.2 mg/dL (0.0-1.4); BUN 17 mg/dL (8-23); BUN/CREATININE RATIO 26 (12-20 (CALC)); CHLORIDE 104 mmol/l (95-108); CPK 176 u/l (30-165); CREATININE 0.7 mg/dL (0.5-1.0); GFR > 60 ML/MIN (>=60 (CALC)); GFR FOR AFR.AMER. > 60 ML/MIN (>=60 (CALC)); POTASSIUM 3.8 mmol/l (3.5-5.1); SGOT/AST 23 u/l (9-36); SODIUM 140 mmol/l (137-146); TOTAL PROTEIN 7.3 g/dL (6.3-8.2)
[2021-08-18 12:08] LABS: CARBON DIOXIDE 25 mmol/l (22-30)
[2021-08-18 13:55] LABS: URINE BILIRUBIN - DIPSTICK NEGATIVE (NEGATIVE); URINE BLOOD DIPSTICK TRACE-INTACT (NEGATIVE); URINE COLOR YELLOW; URINE GLUCOSE - DIPSTICK NEGATIVE (NEGATIVE); URINE KETONE NEGATIVE (NEGATIVE); URINE LEUK ESTERASE NEGATIVE (NEGATIVE); URINE PROTEIN - DIPSTICK NEGATIVE (NEG-TRACE); URINE SPECIFIC GRAVITY 1.025; URINE UROBILINOGEN - DIPSTICK 0.2 E.U./dL (0.2)
[2021-08-18 13:58] LABS: URINE NITRITE - DIPSTICK NEGATIVE (Negative)
[2021-08-18 17:09] VITALS: BP 127/48
[2021-08-18 17:22] VITALS: BP 127/48
[2021-08-18 19:00] VITALS: BP 97/34
[2021-08-19] VITALS (8 sets, daily range): BP systolic 102–141; BP diastolic 48–74
[2021-08-19 05:59] LABS: HEMATOCRIT 31.5 % (37.0-47.0); HEMOGLOBIN 10.1 g/dl (12.0-16.0); MEAN CELL VOLUME 97.2 fL CALC (80.0-100.0); MEAN CORPUSCULAR HGB 31.2 pG CALC (26.0-32.0); MEAN CORPUSCULAR HGB CONC 32.1 g/dL CAL (32.0-36.0); RED BLOOD COUNT 3.24 mill/uL (4.20-5.60); RED CELL DISTRI WIDTH 13.1 % (11.5-15.5)
[2021-08-19 06:11] LABS: ANION GAP 14 (6-22 (CALC)); BUN 21 mg/dL (8-23); BUN/CREATININE RATIO 27 (12-20 (CALC)); CALCULATED LDLCHOLESTEROL 89 mg/dL (62-129 (CALC)); CARBON DIOXIDE 26 mmol/l (22-30); CHLORIDE 102 mmol/l (95-108); CHOLESTEROL HDL RATIO 3.5 (<4.4 (CALC)); CREATININE 0.8 mg/dL (0.5-1.0); GFR > 60 ML/MIN (>=60 (CALC)); GFR FOR AFR.AMER. > 60 ML/MIN (>=60 (CALC)); HDL CHOLESTEROL 46 mg/dL (>=40); POTASSIUM 3.9 mmol/l (3.5-5.1); SODIUM 138 mmol/l (137-146); TOTAL CHOLESTEROL 164 mg/dl (0-199); TOTAL TRIGLYCERIDES 139 mg/dl (30-149); VLDL CHOLESTROL 28 mg/dl (0-48 (CALC))
[2021-08-19] MEDS ORDERED: LISINOP/HCTZ1 TA1 PO (07:27)
[2021-08-19] MEDS ORDERED: CARBAMAZEPINE300 MG PO (07:27)
[2021-08-19] MEDS ORDERED: METFORMIN500 M2 PO (07:28)
== END 2021-08-19 15:50 | disposition home health service (06) ==
LOC: ED 11:22 → ED-I 11:57 → ED 13:54 → MS2 13:54
PROVIDERS: Family Medicine; ADMIT Hospitalist; ATTEND Hospitalist
DX: I95.2 Hypotension due to drugs (principal); T46.4X5A Adverse effect of angiotensin-converting-enzyme inhibitors, initial encounter; U07.1 COVID-19; I10 Essential (primary) hypertension; E11.40 Type 2 diabetes mellitus with diabetic neuropathy, unspecified; M17.11 Unilateral primary osteoarthritis, right knee; G40.909 Epilepsy, unspecified, not intractable, without status epilepticus; I48.91 Unspecified atrial fibrillation; Z79.84 Long term (current) use of oral hypoglycemic drugs; Z95.0 Presence of cardiac pacemaker; Z86.73 Personal history of transient ischemic attack (TIA), and cerebral infarction without residual deficits; Z91.81 History of falling
CPT/HCPCS: J1650

== ENCOUNTER 2021-12-30 19:18 | Emergency (ER) | payer MEDICARE ==
[~2021-12-30] VITALS: Ht 165.1 cm; Wt 77.0 kg
[2021-12-30] VITALS (13 sets, daily range): BP systolic 145–164; BP diastolic 60–86
[~2021-12-30 19:18] MED LIST changes: +CARBAMAZEPINE300 MG PO; +LISINOP/HCTZ1 TA1 PO; +METFORMIN500 M2 PO
[2021-12-30 19:53] LABS: HEMATOCRIT 35.4 % (37.0-47.0); HEMOGLOBIN 11.3 g/dl (12.0-16.0); IMMATURE GRANULOCYTES 0.2 % (0.0-5.0); MEAN CELL VOLUME 94.7 fL CALC (80.0-100.0); MEAN CORPUSCULAR HGB 30.2 pG CALC (26.0-32.0); MEAN CORPUSCULAR HGB CONC 31.9 g/dL CAL (32.0-36.0); NEUT# 3.56 thou/uL (2.00-7.15); RED BLOOD COUNT 3.74 mill/uL (4.20-5.60); RED CELL DISTRI WIDTH 12.7 % (11.5-15.5)
[2021-12-30 19:59] LABS: ALBUMIN 4.1 g/dL (3.2-5.0); ALKALINE PHOSPHATASE 108 u/l (38-126); ANION GAP 13 (6-22 (CALC)); BUN 26 mg/dL (8-23); BUN/CREATININE RATIO 23 (12-20 (CALC)); CARBON DIOXIDE 28 mmol/l (22-30); CHLORIDE 101 mmol/l (95-108); CREATININE 1.2 mg/dL (0.5-1.0); GFR FOR AFR.AMER. 52 ML/MIN (>=60 (CALC)); GFR OTHER RACES 43 ML/MIN (>=60 (CALC)); POTASSIUM 4.3 mmol/l (3.5-5.1); SGOT/AST 24 u/l (9-36); SODIUM 137 mmol/l (137-146); TOTAL PROTEIN 6.7 g/dL (6.3-8.2)
[2021-12-30 20:11] LABS: MYOGLOBIN 26 ng/mL (0 - 62)
[2021-12-30 20:12] LABS: BILIRUBIN, TOTAL 0.1 mg/dL (0.0-1.4)
[2021-12-30 20:42] LABS: URINE BILIRUBIN - DIPSTICK NEGATIVE (NEGATIVE); URINE BLOOD DIPSTICK NEGATIVE (NEGATIVE); URINE COLOR YELLOW; URINE GLUCOSE - DIPSTICK NEGATIVE (NEGATIVE); URINE KETONE TRACE mg/dL (NEGATIVE); URINE LEUK ESTERASE NEGATIVE (NEGATIVE); URINE PROTEIN - DIPSTICK NEGATIVE (NEG-TRACE); URINE SPECIFIC GRAVITY 1.025; URINE UROBILINOGEN - DIPSTICK 0.2 E.U./dL (0.2)
[2021-12-30 20:45] LABS: URINE NITRITE - DIPSTICK NEGATIVE (Negative)
[2021-12-30] MEDS ORDERED: CLOPIDOGREL75 MG PO (21:06)
[2021-12-30] MEDS ORDERED: ATORVASTATIN CA20 MG PO (21:07)
[2021-12-30] MEDS ORDERED: TEGRETOL200 MG PO (22:26)
== END 2021-12-30 23:12 | disposition home or self-care (01) ==
LOC: ED 19:18
PROVIDERS: Family Medicine
DX: G40.409 Other generalized epilepsy and epileptic syndromes, not intractable, without status epilepticus (principal); I10 Essential (primary) hypertension; E11.9 Type 2 diabetes mellitus without complications; I48.91 Unspecified atrial fibrillation; Z86.73 Personal history of transient ischemic attack (TIA), and cerebral infarction without residual deficits; Z95.5 Presence of coronary angioplasty implant and graft; Z79.84 Long term (current) use of oral hypoglycemic drugs

== ENCOUNTER 2022-01-05 20:42 | Emergency (ER) | payer MEDICARE ==
[~2022-01-05] VITALS: Ht 165.1 cm; Wt 95.0 kg
[~2022-01-05 20:42] MED LIST changes: +ATORVASTATIN CA20 MG PO; +CLOPIDOGREL75 MG PO; +TEGRETOL200 MG PO
[2022-01-05 21:18] LABS: HEMATOCRIT 36.2 % (37.0-47.0); HEMOGLOBIN 11.6 g/dl (12.0-16.0); IMMATURE GRANULOCYTES 0.3 % (0.0-5.0); MEAN CELL VOLUME 94.8 fL CALC (80.0-100.0); MEAN CORPUSCULAR HGB 30.4 pG CALC (26.0-32.0); NEUT# 3.72 thou/uL (2.00-7.15); RED BLOOD COUNT 3.82 mill/uL (4.20-5.60); RED CELL DISTRI WIDTH 12.6 % (11.5-15.5)
[2022-01-05 21:24] LABS: ALBUMIN 4.5 g/dL (3.2-5.0); ALKALINE PHOSPHATASE 116 u/l (38-126); ANION GAP 16 (6-22 (CALC)); BILIRUBIN, TOTAL 0.1 mg/dL (0.0-1.4); BUN 25 mg/dL (8-23); BUN/CREATININE RATIO 27 (12-20 (CALC)); CARBON DIOXIDE 25 mmol/l (22-30); CHLORIDE 100 mmol/l (95-108); CREATININE 0.9 mg/dL (0.5-1.0); GFR FOR AFR.AMER. > 60 ML/MIN (>=60 (CALC)); GFR OTHER RACES 59 ML/MIN (>=60 (CALC)); POTASSIUM 4.1 mmol/l (3.5-5.1); SGOT/AST 27 u/l (9-36); SODIUM 137 mmol/l (137-146)
[2022-01-05 21:35] LABS: MYOGLOBIN 37 ng/mL (0 - 62)
[2022-01-05] MEDS ORDERED: KEPPRA500 M2 PO (23:35)
[2022-01-05 23:41] VITALS: BP 147/60
== END 2022-01-05 23:50 | disposition home or self-care (01) ==
LOC: ED 20:42
PROVIDERS: Family Medicine
DX: G40.409 Other generalized epilepsy and epileptic syndromes, not intractable, without status epilepticus (principal); I10 Essential (primary) hypertension; E11.9 Type 2 diabetes mellitus without complications; I48.91 Unspecified atrial fibrillation; Z86.73 Personal history of transient ischemic attack (TIA), and cerebral infarction without residual deficits; Z95.0 Presence of cardiac pacemaker; Z79.84 Long term (current) use of oral hypoglycemic drugs
CPT/HCPCS: J1953

== ENCOUNTER 2022-02-01 14:32 | Emergency (ER) | payer MEDICARE ==
[~2022-02-01] VITALS: Ht 165.1 cm; Wt 76.8 kg
[2022-02-01] VITALS (15 sets, daily range): BP systolic 143–185; BP diastolic 62–102
[~2022-02-01 14:32] MED LIST changes: +KEPPRA500 M2 PO
[2022-02-01 16:08] LABS: HEMATOCRIT 35.4 % (37.0-47.0); HEMOGLOBIN 11.5 g/dl (12.0-16.0); IMMATURE GRANULOCYTES 0.2 % (0.0-5.0); MEAN CELL VOLUME 92.7 fL CALC (80.0-100.0); MEAN CORPUSCULAR HGB 30.1 pG CALC (26.0-32.0); MEAN CORPUSCULAR HGB CONC 32.5 g/dL CAL (32.0-36.0); NEUT# 3.45 thou/uL (2.00-7.15); RED BLOOD COUNT 3.82 mill/uL (4.20-5.60); RED CELL DISTRI WIDTH 12.4 % (11.5-15.5)
[2022-02-01 16:33] LABS: ALBUMIN 4.3 g/dL (3.2-5.0); ALKALINE PHOSPHATASE 112 u/l (38-126); BILIRUBIN, TOTAL 0.1 mg/dL (0.0-1.4); BUN 19 mg/dL (8-23); BUN/CREATININE RATIO 24 (12-20 (CALC)); CARBON DIOXIDE 30 mmol/l (22-30); CHLORIDE 93 mmol/l (95-108); CREATININE 0.8 mg/dL (0.5-1.0); GFR FOR AFR.AMER. > 60 ML/MIN (>=60 (CALC)); GFR OTHER RACES > 60 ML/MIN (>=60 (CALC)); LIPASE 185 u/l (23-300); POTASSIUM 4.4 mmol/l (3.5-5.1); SGOT/AST 30 u/l (9-36); TOTAL PROTEIN 6.9 g/dL (6.3-8.2)
[2022-02-01 16:35] LABS: ANION GAP 11 (6-22 (CALC)); SODIUM 130 mmol/l (137-146)
[2022-02-01 19:38] LABS: URINE BILIRUBIN - DIPSTICK NEGATIVE (NEGATIVE); URINE BLOOD DIPSTICK NEGATIVE (NEGATIVE); URINE COLOR YELLOW; URINE GLUCOSE - DIPSTICK NEGATIVE (NEGATIVE); URINE KETONE NEGATIVE (NEGATIVE); URINE LEUK ESTERASE NEGATIVE (NEGATIVE); URINE PH 6.5 (4.5-8.0); URINE PROTEIN - DIPSTICK NEGATIVE (NEG-TRACE); URINE UROBILINOGEN - DIPSTICK 0.2 E.U./dL (0.2)
[2022-02-01 19:39] LABS: URINE NITRITE - DIPSTICK NEGATIVE (Negative)
== END 2022-02-01 20:09 | disposition home or self-care (01) ==
LOC: ED 14:32
PROVIDERS: Nurse Practitioner
DX: S00.12XA Contusion of left eyelid and periocular area, initial encounter (principal); E87.1 Hypo-osmolality and hyponatremia; R19.7 Diarrhea, unspecified; F03.90 Unspecified dementia, unspecified severity, without behavioral disturbance, psychotic disturbance, mood disturbance, and anxiety; I10 Essential (primary) hypertension; E11.9 Type 2 diabetes mellitus without complications; G40.909 Epilepsy, unspecified, not intractable, without status epilepticus; I48.91 Unspecified atrial fibrillation; W18.2XXA Fall in (into) shower or empty bathtub, initial encounter; Y93.E9 Activity, other interior property and clothing maintenance; Y92.002 Bathroom of unspecified non-institutional (private) residence as the place of occurrence of the external cause; Z86.73 Personal history of transient ischemic attack (TIA), and cerebral infarction without residual deficits; Z95.0 Presence of cardiac pacemaker; Z79.84 Long term (current) use of oral hypoglycemic drugs

== ENCOUNTER 2022-05-25 13:08 | Emergency (ER) | payer MEDICARE ==
[~2022-05-25] VITALS: Ht 165.1 cm; Wt 77.0 kg
[2022-05-25 13:57] VITALS: BP 150/59
[2022-05-25 14:01] VITALS: BP 158/66
[2022-05-25 14:15] VITALS: BP 158/62
[2022-05-25 14:30] VITALS: BP 163/66
[2022-05-25 14:46] VITALS: BP 145/53
[2022-05-25 14:55] VITALS: BP 145/53
== END 2022-05-25 15:00 | disposition home or self-care (01) ==
LOC: ED 13:08
DX: M25.552 Pain in left hip (principal); I10 Essential (primary) hypertension; E11.9 Type 2 diabetes mellitus without complications; E78.5 Hyperlipidemia, unspecified; G40.909 Epilepsy, unspecified, not intractable, without status epilepticus; I48.91 Unspecified atrial fibrillation; Z86.73 Personal history of transient ischemic attack (TIA), and cerebral infarction without residual deficits; Z95.0 Presence of cardiac pacemaker; Z79.84 Long term (current) use of oral hypoglycemic drugs

== ENCOUNTER 2022-09-19 09:10 | Observation (INO) | payer MEDICARE ==
[2022-09-19] VITALS (22 sets, daily range): BP systolic 106–164; BP diastolic 51–91
[~2022-09-19] VITALS: Ht 165.1 cm; Wt 81.8 kg
[2022-09-19 09:34] LABS: BASO% 0.3 % (0-3); EOS% 2.1 % (0-8); HEMATOCRIT 38.1 % (37.0-47.0); IMMATURE GRANULOCYTES 0.3 % (0.0-5.0); LYMPH% 20.3 % (15-41); MEAN CELL VOLUME 96.9 fL CALC (80.0-100.0); MEAN CORPUSCULAR HGB 30.5 pG CALC (26.0-32.0); MEAN CORPUSCULAR HGB CONC 31.5 g/dL CAL (32.0-36.0); MONO% 7.1 % (2-13); NEUT# 4.6 thou/uL (2.00-7.15); NEUT% 69.9 % (42-76); RED BLOOD COUNT 3.93 mill/uL (4.20-5.60)
[2022-09-19 09:44] LABS: ALBUMIN 4.3 g/dL (3.2-5.0); ALKALINE PHOSPHATASE 104 u/l (38-126); BUN 19 mg/dL (8-23); BUN/CREATININE RATIO 26 (12-20 (CALC)); CARBON DIOXIDE 26 mmol/l (22-30); CREATININE 0.7 mg/dL (0.5-1.0); GFR FOR AFR.AMER. > 60 ML/MIN (>=60 (CALC)); GFR OTHER RACES > 60 ML/MIN (>=60 (CALC)); POTASSIUM 4.6 mmol/l (3.5-5.1); SGOT/AST 24 u/l (9-36); TOTAL PROTEIN 6.6 g/dL (6.3-8.2)
[2022-09-19 09:54] LABS: ANION GAP 10 (6-22 (CALC)); BILIRUBIN, TOTAL 0.3 mg/dL (0.02-1.3); CHLORIDE 109 mmol/l (95-108); SODIUM 140 mmol/l (137-146)
[2022-09-19 10:33] LABS: URINE BILIRUBIN - DIPSTICK NEGATIVE (NEGATIVE); URINE BLOOD DIPSTICK NEGATIVE (NEGATIVE); URINE COLOR YELLOW; URINE GLUCOSE - DIPSTICK NEGATIVE (NEGATIVE); URINE KETONE NEGATIVE (NEGATIVE); URINE PH 5.5 (4.5-8.0); URINE PROTEIN - DIPSTICK NEGATIVE (NEG-TRACE); URINE UROBILINOGEN - DIPSTICK 0.2 E.U./dL (0.2)
[2022-09-19 10:34] LABS: URINE BACTERIA FEW hpf; URINE EPITHELIAL CELLS FEW EPI/hpf (0-FEW); URINE LEUK ESTERASE SMALL (NEGATIVE); URINE NITRITE - DIPSTICK NEGATIVE (Negative)
[2022-09-20 04:33] VITALS: BP 137/58
[2022-09-20 05:24] LABS: BASO% 0.5 % (0-3); EOS% 1.9 % (0-8); HEMATOCRIT 34.3 % (37.0-47.0); HEMOGLOBIN 10.8 g/dl (12.0-16.0); IMMATURE GRANULOCYTES 0.2 % (0.0-5.0); LYMPH% 22.3 % (15-41); MEAN CELL VOLUME 96.6 fL CALC (80.0-100.0); MEAN CORPUSCULAR HGB 30.4 pG CALC (26.0-32.0); MEAN CORPUSCULAR HGB CONC 31.5 g/dL CAL (32.0-36.0); MONO% 7.6 % (2-13); NEUT# 4.17 thou/uL (2.00-7.15); NEUT% 67.5 % (42-76); RED BLOOD COUNT 3.55 mill/uL (4.20-5.60)
[2022-09-20 05:50] LABS: ALBUMIN 3.9 g/dL (3.2-5.0); ALKALINE PHOSPHATASE 101 u/l (38-126); ANION GAP 12 (6-22 (CALC)); BUN 27 mg/dL (8-23); BUN/CREATININE RATIO 41 (12-20 (CALC)); CARBON DIOXIDE 23 mmol/l (22-30); CHLORIDE 109 mmol/l (95-108); CREATININE 0.7 mg/dL (0.5-1.0); GFR FOR AFR.AMER. > 60 ML/MIN (>=60 (CALC)); GFR OTHER RACES > 60 ML/MIN (>=60 (CALC)); POTASSIUM 4.1 mmol/l (3.5-5.1); SGOT/AST 20 u/l (9-36); SODIUM 140 mmol/l (137-146)
[2022-09-20 07:58] VITALS: BP 167/65
[2022-09-20 10:00] VITALS: BP 158/51
[2022-09-20] MEDS ORDERED: LEVETIRACETAM500 MG PO (10:58)
[2022-09-20 11:07] VITALS: BP 150/51
== END 2022-09-20 15:58 | disposition home or self-care (01) ==
LOC: ED 09:10 → ED-I 13:55 → ED 14:03 → ED-I 14:03 → MS2 14:06 → ED 14:06 → MS2 14:31 → ED 14:31 → MS2 09-20 15:58
PROVIDERS: Family Medicine; ADMIT Internal Medicine; ATTEND Internal Medicine
DX: R07.9 Chest pain, unspecified (principal); G40.909 Epilepsy, unspecified, not intractable, without status epilepticus; I10 Essential (primary) hypertension; E11.9 Type 2 diabetes mellitus without complications; I48.91 Unspecified atrial fibrillation; F03.90 Unspecified dementia, unspecified severity, without behavioral disturbance, psychotic disturbance, mood disturbance, and anxiety; Z95.0 Presence of cardiac pacemaker; Z86.73 Personal history of transient ischemic attack (TIA), and cerebral infarction without residual deficits
CPT/HCPCS: J1953

== ENCOUNTER 2022-10-20 07:57 | Emergency (ER) | payer MEDICARE ==
[2022-10-20] VITALS (31 sets, daily range): BP systolic 108–152; BP diastolic 38–65
[~2022-10-20] VITALS: Ht 165.1 cm; Wt 79.8 kg
[~2022-10-20 07:57] MED LIST changes: +LEVETIRACETAM500 MG PO
[2022-10-20] MEDS ORDERED: ASPIRINCHW 81MG PO (08:16)
[2022-10-20] MEDS ORDERED: ARICEPT10 MG PO (08:19)
[2022-10-20] MEDS ORDERED: METFORMIN500 M2 PO (08:22)
[2022-10-20] MEDS ORDERED: LOSARTAN POTASS25 MG PO (08:24)
[2022-10-20] MEDS ORDERED: TOPROL XL100 MG PO (08:24)
[2022-10-20 08:25] LABS: BASO% 0.5 % (0-3); EOS% 2.1 % (0-8); HEMATOCRIT 37.5 % (37.0-47.0); HEMOGLOBIN 11.8 g/dl (12.0-16.0); IMMATURE GRANULOCYTES 0.6 % (0.0-5.0); LYMPH% 20.2 % (15-41); MEAN CELL VOLUME 95.2 fL CALC (80.0-100.0); MEAN CORPUSCULAR HGB 29.9 pG CALC (26.0-32.0); MEAN CORPUSCULAR HGB CONC 31.5 g/dL CAL (32.0-36.0); MONO% 6.2 % (2-13); NEUT# 4.67 thou/uL (2.00-7.15); NEUT% 70.4 % (42-76); RED BLOOD COUNT 3.94 mill/uL (4.20-5.60); RED CELL DISTRI WIDTH 12.5 % (11.5-15.5)
[2022-10-20] MEDS ORDERED: HYDROCHLOROT25 MG PO (08:25)
[2022-10-20 08:41] LABS: ALBUMIN 4.1 g/dL (3.2-5.0); ALKALINE PHOSPHATASE 103 u/l (38-126); BUN 25 mg/dL (8-23); BUN/CREATININE RATIO 29 (12-20 (CALC)); CHLORIDE 104 mmol/l (95-108); CREATININE 0.9 mg/dL (0.5-1.0); GFR FOR AFR.AMER. > 60 ML/MIN (>=60 (CALC)); GFR OTHER RACES 59 ML/MIN (>=60 (CALC)); POTASSIUM 3.6 mmol/l (3.5-5.1); SGOT/AST 25 u/l (9-36); SODIUM 141 mmol/l (137-146)
[2022-10-20 08:56] LABS: URINE BILIRUBIN - DIPSTICK NEGATIVE (NEGATIVE); URINE BLOOD DIPSTICK NEGATIVE (NEGATIVE); URINE COLOR YELLOW; URINE GLUCOSE - DIPSTICK NEGATIVE (NEGATIVE); URINE KETONE NEGATIVE (NEGATIVE); URINE LEUK ESTERASE NEGATIVE (NEGATIVE); URINE NITRITE - DIPSTICK NEGATIVE (Negative); URINE PH 5.5 (4.5-8.0); URINE PROTEIN - DIPSTICK NEGATIVE (NEG-TRACE); URINE SPECIFIC GRAVITY 1.015; URINE UROBILINOGEN - DIPSTICK 0.2 E.U./dL (0.2)
[2022-10-20 09:03] LABS: ANION GAP 12 (6-22 (CALC)); BILIRUBIN, TOTAL 0.3 mg/dL (0.02-1.3); CARBON DIOXIDE 29 mmol/l (22-30)
== END 2022-10-20 22:07 ==
LOC: ED 07:57
PROVIDERS: Family Medicine
DX: G40.909 Epilepsy, unspecified, not intractable, without status epilepticus (principal); I10 Essential (primary) hypertension; E11.9 Type 2 diabetes mellitus without complications; I48.91 Unspecified atrial fibrillation; E78.5 Hyperlipidemia, unspecified; F03.90 Unspecified dementia, unspecified severity, without behavioral disturbance, psychotic disturbance, mood disturbance, and anxiety; Z86.73 Personal history of transient ischemic attack (TIA), and cerebral infarction without residual deficits; Z95.0 Presence of cardiac pacemaker; Z79.84 Long term (current) use of oral hypoglycemic drugs
CPT/HCPCS: J1953